=== PATIENT | male | born 1960 | race Two or more races ===

== ENCOUNTER 2020-02-11 08:00 | Outpatient (CLI) | payer MEDICAID ==
[2020-02-11 18:50] LABS: ALBUMIN 4.4 g/dL (3.2-5.5); ALBUMIN/GLOBULIN RATIO 1.4 (1.0-2.2); ALKALINE PHOSPHATASE 58 IU/L (42-121); ALT ALANINE AMINOTRANSFERASE 25 IU/L (10-60); AST ASPARTATE AMINOTRANSFERASE 24 IU/L (10-42); BILIRUBIN,TOTAL 0.7 mg/dL (0.2-1.0); BUN - BLOOD UREA NITROGEN 15 mg/dL (6-20); CALCIUM 9.3 mg/dL (8.5-10.3); CARBON DIOXIDE - CO2 30 mmol/L (21-32); CHLORIDE 100 mmol/L (101-111); CHOL/HDL RATIO 4.1 (<5.0); CHOLESTEROL 200 mg/dL; GFR - MDRD 76 (>89); GLUCOSE 109 mg/dL (70-100); HDL CHOLESTEROL 49 mg/dL; LDL CHOLESTEROL,CALCULATED 110 mg/dL; LDL/HDL RATIO 2.2 (<3.6); POTASSIUM 3.6 mmol/L (3.5-5.0); SODIUM 139 mmol/L (135-145); TOTAL PROTEIN 7.6 g/dL (6.7-8.2); TRIGLYCERIDES 205 mg/dL; VLDL CHOLESTEROL 41 mg/dL
[2020-02-11 19:00] LABS: BASOPHILS # (AUTO) 0.1 10^3/uL (0.0-0.1); BASOPHILS % (AUTO) 0.7 %; EOSINOPHILS # (AUTO) 0.2 10^3/uL (0.0-0.7); EOSINOPHILS % (AUTO) 2.1 %; HCT - HEMATOCRIT 41.5 % (42.0-52.0); HGB - HEMOGLOBIN 13.8 g/dL (14.0-18.0); LYMPHOCYTES # (AUTO) 3.2 10^3/uL (1.5-3.5); LYMPHOCYTES % (AUTO) 29.2 %; MEAN CORPUSCULAR HEMOGLOBIN 30.1 pg (27.0-31.0); MEAN CORPUSCULAR HGB CONC 33.3 g/dL (32.0-36.0); MEAN CORPUSCULAR VOLUME 90.6 fL (80.0-94.0); MEAN PLATELET VOLUME 11.2 fL (7.4-11.4); MONOCYTES # (AUTO) 0.6 10^3/uL (0.0-1.0); MONOCYTES % (AUTO) 5.3 %; NEUTROPHILS # (AUTO) 6.9 10^3/uL (1.5-6.6); NEUTROPHILS % (AUTO) 62.2 %; PLT - PLATELET COUNT 299 10^3/uL (130-450); RED BLOOD COUNT 4.58 10^6/uL (4.70-6.10); RED CELL DISTRIBUTION WIDTH 14.7 % (12.0-15.0); THYROID STIMULATING HORMONE 1.47 uIU/mL (0.34-5.60); WHITE BLOOD COUNT 11.1 x10^3/uL (4.8-10.8)
[2020-02-11 19:17] LABS: ESTIMATED AVERAGE GLUCOSE 126 mg/dL (70-100)
[2020-02-11 19:22] LABS: CREATININE,URINE 544.7 mg/dL; MICROALBUM/CREATININE RATIO,UR 26.3 ug/mg (<30.0); MICROALBUMIN,URINE 14.3 mg/dL (0-300.0)
== END 2020-02-11 23:59 | disposition home or self-care (01) ==
LOC: LAB.WCP 08:00
PROVIDERS: ATTEND Nurse Practitioner
DX: E11.9 Type 2 diabetes mellitus without complications (principal); Z79.899 Other long term (current) drug therapy; F32.9 Major depressive disorder, single episode, unspecified; K21.9 Gastro-esophageal reflux disease without esophagitis; I25.10 Atherosclerotic heart disease of native coronary artery without angina pectoris
CPT/HCPCS: 36415; 80053; 80061; 82043; 82570; 83036; 83721; 84443; 85025

== ENCOUNTER 2020-03-01 15:18 | Outpatient (CLI) | payer MEDICAID ==
--- NOTE | 2020-03-01 15:41 | XRAY Report ---
PROCEDURE: Shoulder 3 View LT INDICATIONS: L ROTATOR CUFF SYNDROME TECHNIQUE: 4 views of the shoulder were acquired. COMPARISON: None. FINDINGS: Bones: No acute fractures or dislocations. No suspicious bony lesions. Visualized ribs appear inta ct. Moderate degenerative changes are seen at the acromioclavicular joint. Mild glenohumeral osteoar throsis. Humeral head is mildly high riding with narrowing of the acromiohumeral interval, which is s uspicious for an underlying rotator cuff tendon pathology. Soft tissues: No suspicious soft tissue calcifications. IMPRESSION: 1. No acute osseous abnormality. 2. Mild glenohumeral osteoarthrosis and moderate acromioclavicular osteoarthrosis. 3. Narrowing of the acromiohumeral interval is suspicious for underlying rotator cuff tendon tearing . MRI may be obtained for confirmation if indicated clinically. Reviewed by: Bartolome Polo MD on 03/01/2020 3:40 PM PST Approved by: Bartolome Polo MD on 03/01/2020 3:40 PM PST Station ID: [id number]
== END 2020-03-01 15:19 | disposition home or self-care (01) ==
LOC: DI.N 15:18
PROVIDERS: ATTEND Orthopaedic Surgery
DX: M19.012 Primary osteoarthritis, left shoulder (principal); R93.6 Abnormal findings on diagnostic imaging of limbs

== ENCOUNTER 2020-03-02 08:11 | Outpatient (CLI) | payer MEDICAID ==
[2020-03-02 09:25] VITALS: BP 169/106
--- NOTE | 2020-03-02 09:25 | SLEEP CARE CONSULTATION ---
Information from patient questionnaire entered by Keli Betancourt. I have reviewed and concur with the information entered by Keli Betancourt. This document represents the service I personally performed and the decisions made by me, Sarah Blackmon ARNP. History of Present Illness Service Date and Time: 03/02/2020 0811 Reason for Visit: New patient, Previously diagnosed sleep apnea ([place], 1-2 years ago), sleep apnea on CPAP therapy Chief Complaint: reports: Insomnia, Unrefreshed sleep, Snoring, Observed pauses in breathing, Fatigue, Frequent awakenings at night Date of Onset: 3 years Usual bedtime: after midnight Time it takes to fall asleep: fast, 1-5 minutes Snores at night: Yes Observed to quit breathing while asleep: Yes Sleeps alone due to snoring: No Number of times waking at night: 5 Reasons for waking at night: reports: Bathroom Toss, Turn, or Twitch while sleeping: Yes Recalls having dreams: No Usually gets out of bed at: 6-7 am Feels refreshed in the morning: No Morning headache: No (neck pain) Sleepy or fatigued during the day: Yes (fatigued) Ever fallen asleep while driving: No Takes day naps: No Dreams during day naps: No Prior sleep studies: Yes Additional HPI information: JESUS KIRK was previously diagnosed to have severe, AHI 34.0, obstructive sleep apnea-hypopnea syndrome and comes in today to establish care for his CPAP therapy. Jesus speaks mainly [place]. [employer] interpreting services was used during this visit. [employer] Operator name Antonieta, #[id number]. - Parasomnia Symptoms Ever been unable to move upon waking from sleep: No Walks in sleep: No Talks in sleep: No Ever acted out dreams in sleep: No Ever felt weak in the knees when startled or emotional: No Bothered by creepy, crawly, restless sensations in legs: Yes Problems with memory or concentration: Yes CPAP Compliance Data - Data Reviewed with Patient Average duration of nightly device use: 9 hr 2 min Compliance rate %: 94 (180 days) Current pressure setting (cmH2O): 13 Average residual AHI: 1.1 Compliance data discussion: He was getting supplies locally in [place] then [place] but has not been able to get supplies here yet. He is using a nasal cushion mask. He washes his mask daily but has not replaced it for a long time. Subjective Patient concerns: reports: mask discomfort (a little looser, needs to be tighter), air blowing in eyes, mask leak noise, dry mouth, nose, throat. denies: aerophagia, condensation in mask/hose, nasal congestion, epistaxis, other Observed to snore while using device: No Current pressure setting perceived as: comfortable On therapy, patient: reports: sleeping better, awakening more refreshed, being more awake and alert during the day, more rested overall. denies: drowsiness while driving Initial [place] Sleepiness Scale score: 9 (in 2020) Past Medical History Past Medical History: reports: Hypertension, Diabetes, Arthritis, Coronary Heart Disease, Anxiety, Asthma, Depression, GERD, Attention deficit Social History The patient's occupation is a Not Employed. Patient is and lives in [place]. Have you smoked in the past 12 months: No Quit date: 1-2 years ago Alcohol use: No Caffeine use: Yes Caffeine amount and frequency: not much, 2-3. a week Family History Family history of sleep disordered breathing: Yes (father) Family Hx Sleep Apnea: Father: Snoring Allergies and Home Medications Drug allergies reviewed: Yes (NKDA) Home medication list reviewed: Yes Allergy and home medication list: He takes blood pressure medication and some others but he does not remember their names. (asked patient to bring in a list of his medications) Review of Systems Cardiovascular: reports: high blood pressure Respiratory: reports: shortness of breath Gastrointestinal: reports: heartburn Urinary: reports: frequency, urgency Psychiatric: reports: anxiety, depression Ear/Nose/Throat: reports: nasal congestion, sinus problems, dry mouth/throat, hoarseness Endocrine: reports: sluggishness, too hot or cold (cold), excessive thirst, increased urination, unexplained weakness Musculoskeletal: reports: joint pain, neck pain, back pain (lower), muscle pain or cramping Immunologic: reports: sneezing Physical Exam Blood Pressure: 169/106 (hx hypertension) Cuff size: wrist Heart Rate: 74 O2 Saturation: 97 Height: 5 ft 11 in Weight: 245 lb Body Mass Index: 34.2 BMI Classification: Obese Heart: regular rate and rhythm Lungs: clear bilaterally Impression and Plan 1. Obstructive Sleep Apnea-Hypopnea Syndrome, severe, with good treatment compliance and good apnea control. On CPAP therapy, the patient has better sleep quality and is more rested overall. He needs to be able to get supplies. He has some mask discomfort because it is loose and needs to be change for an new mask. The mask leaking and noises will also improve with getting new supplies. For patient supply concerns he was informed that a new DME can be used. I will have my emergency medical service coordinator inform of DME options. A DWO prescription will then be made. Patient advised to contact this office if further supply problems. He was also asked to bring in a copy of his medication list to our office for our records. Patient's apnea severity and rationale for treatment to reduce apnea, improve sleep quality and reduce cardiovascular and cerebrovascular events was reviewed. I also reviewed the benefit of consistent device use of CPAP for hypertension, cardiac disease, diabetes, gastric reflux, asthma, and depression/anxiety. * Continue auto CPAP pressure at 13 cmH2O * Transfer DME and update supplies * Notify me if snoring with mask or feeling that the pressure is too much or too little * Call this office if any problems using CPAP * Return for follow up in 1 year, or sooner if concerns arise Visit Type: In Office Time Spent with Patient (minutes): 36 Provider Statement: I spent 100% of the Face to Face Visit with the patient with greater than 50% spent counseling the patient and coordination of care.
== END 2020-03-02 08:12 | disposition home or self-care (01) ==
LOC: SC 08:11
PROVIDERS: ATTEND Nurse Practitioner Family
DX: G47.33 Obstructive sleep apnea (adult) (pediatric) (principal); E66.9 Obesity, unspecified; Z68.34 Body mass index [BMI] 34.0-34.9, adult
CPT/HCPCS: 99203; 99212

== ENCOUNTER 2020-03-11 10:23 | Outpatient (CLI) | payer MEDICAID ==
--- NOTE | 2020-03-12 07:57 | Mammography Report ---
MALE BILATERAL DIGITAL DIAGNOSTIC MAMMOGRAM 3D/2D: 03/11/2020 CLINICAL: Focal right breast pain. No prior exams were available for comparison. There is a flame-shaped irregular equal density asymmetry with indistinct margins in the left breast central to the nipple in the retroareolar region. This correlates to the area of reported pain. No other significant masses, calcifications, or other findings are seen in either breast. IMPRESSION: BENIGN There is no mammographic evidence of malignancy. Left retroareolar findings consistent with gynecomastia. Recommend correlation with clinical history for possible etiology. This exam was interpreted at Station ID: [id number]. NOTE: For mammograms, a report in lay terms will be sent to the patient. Approximately 15% of breast malignancies will not be visualized mammographically. In the management of a palpable breast mass, a negative mammogram must not discourage biopsy of a clinically suspicious lesion. Electronically Signed By: Alo Gonsalez M.D. ddp/:03/11/2020 10:56:43 ACR BI-RADS Category 2: Benign Finding(s) 3342F PARENCHYMAL PATTERN: (F) - The breast(s) demonstrate(s) diffuse fatty replacement. BI-RADS CATEGORY: (2) - 2 Unspecified - other recall n/a LATERALITY: (B)
== END 2020-03-11 10:24 | disposition home or self-care (01) ==
LOC: DI 10:23
PROVIDERS: ATTEND Nurse Practitioner
DX: N62 Hypertrophy of breast (principal)

== ENCOUNTER 2020-03-17 10:07 | Outpatient (CLI) | payer MEDICAID ==
--- NOTE | 2020-03-17 16:15 | MRI Report ---
PROCEDURE: Shoulder LT W/O INDICATIONS: LT ROTATOR CUFF TEAR TECHNIQUE: Noncontrast oblique coronal T2 fast spin echo with fat saturation, oblique sagittal T1 spin echo and T2 fast spin echo with fat saturation, axial T1 spin echo and T2 fast spin echo with fat saturation t hrough the shoulder. COMPARISON: None. FINDINGS: Image quality: Excellent. Rotator cuff: There is full-thickness rupture of distal supraspinatus at its insertion on humeral hea d with up to 4.3 cm medial retraction of torn tendon fibers to the level of glenoid. Tendinosis and m oderate grade articular and bursal surface partial-thickness tear involving distal infraspinatus is s een. Distal subscapularis tendinosis is also seen. Moderate to severe supraspinatus muscle atrophy an d mild infraspinatus muscle atrophy is seen on sagittal images. Bones and bursae: No bone marrow contusions or fractures. Moderate acromioclavicular joint osteoarth ritic changes are seen with downward osteophyte formation depressing on musculotendinous junction of supraspinatus. The acromion demonstrates conventional anatomy, without an os acromiale. Moderate amou nt of joint effusion and subacromial subdeltoid bursal fluid is seen. Capsule and soft tissues: In the absence of intra-articular contrast, the labrum and glenohumeral li gaments appear intact. The long head of the biceps tendon is not visualized. The rotator interval ap pears normal, without fibrosis. The coracohumeral ligament is normal in thickness. IMPRESSION: 1. Full-thickness rupture of distal supraspinatus at its insertion on humeral head with up to 4.3 cm medial retraction of torn tendon fibers to the level of glenoid. Tendinosis and low to moderate grade articular and bursal surface partial-thickness tear involving distal infraspinatus extending to musc ulotendinous junction. Distal subscapularis tendinosis. Moderate to severe supraspinatus muscle atrop hy and mild infraspinatus muscle atrophy. 2. Moderate acromioclavicular joint osteoarthritis. 3. No gross focal labral tear. 4. Nonvisualization of proximal intra-articular portion of long head of biceps tendon concerning for bicipital tendon rupture. Reviewed by: Femi Marquez MD on 03/17/2020 4:13 PM PST Approved by: Femi Marquez MD on 03/17/2020 4:13 PM [facility] Station ID: [id number]
== END 2020-03-17 10:08 | disposition home or self-care (01) ==
LOC: DI 10:07
PROVIDERS: ATTEND Orthopaedic Surgery
DX: M75.102 Unspecified rotator cuff tear or rupture of left shoulder, not specified as traumatic (principal); M19.012 Primary osteoarthritis, left shoulder; S43.492A Other sprain of left shoulder joint, initial encounter

== ENCOUNTER 2020-08-18 08:00 | Outpatient (CLI) | payer MEDICAID ==
[2020-08-18 11:59] LABS: BUN - BLOOD UREA NITROGEN 17 mg/dL (6-20); CARBON DIOXIDE - CO2 29 mmol/L (21-32); CHLORIDE 101 mmol/L (101-111); CHOL/HDL RATIO 3.5 (<5.0); CHOLESTEROL 147 mg/dL; CREATININE 0.7 mg/dL (0.6-1.2); GFR - MDRD 115 (>89); GLUCOSE 118 mg/dL (70-100); HDL CHOLESTEROL 42 mg/dL; LDL CHOLESTEROL,CALCULATED 80 mg/dL; LDL/HDL RATIO 1.9 (<3.6); SODIUM 142 mmol/L (135-145); TRIGLYCERIDES 123 mg/dL; VLDL CHOLESTEROL 25 mg/dL
[2020-08-18 12:06] LABS: BASOPHILS # (AUTO) 0.1 10^3/uL (0.0-0.1); BASOPHILS % (AUTO) 0.7 %; EOSINOPHILS # (AUTO) 0.3 10^3/uL (0.0-0.7); EOSINOPHILS % (AUTO) 2.5 %; HCT - HEMATOCRIT 36.5 % (42.0-52.0); HGB - HEMOGLOBIN 12.1 g/dL (14.0-18.0); LYMPHOCYTES # (AUTO) 2.8 10^3/uL (1.5-3.5); LYMPHOCYTES % (AUTO) 25.9 %; MEAN CORPUSCULAR HEMOGLOBIN 30.1 pg (27.0-31.0); MEAN CORPUSCULAR HGB CONC 33.2 g/dL (32.0-36.0); MEAN CORPUSCULAR VOLUME 90.8 fL (80.0-94.0); MEAN PLATELET VOLUME 11.7 fL (7.4-11.4); MONOCYTES # (AUTO) 0.5 10^3/uL (0.0-1.0); MONOCYTES % (AUTO) 4.4 %; NEUTROPHILS # (AUTO) 7.1 10^3/uL (1.5-6.6); NEUTROPHILS % (AUTO) 66.2 %; PLT - PLATELET COUNT 237 10^3/uL (130-450); RED BLOOD COUNT 4.02 10^6/uL (4.70-6.10); RED CELL DISTRIBUTION WIDTH 13.9 % (12.0-15.0); WHITE BLOOD COUNT 10.8 x10^3/uL (4.8-10.8)
== END 2020-08-18 23:59 | disposition home or self-care (01) ==
LOC: LAB.WCP 08:00
PROVIDERS: ATTEND Internal Medicine Cardiovascular Disease
DX: I10 Essential (primary) hypertension (principal); E78.5 Hyperlipidemia, unspecified
CPT/HCPCS: 36415; 80048; 80061; 83721; 85025